=== PATIENT | female | born 1960 | race Caucasian/White ===

== ENCOUNTER 2018-03-26 15:47 | Emergency (ER) | payer SELFPAY ==
[2018-03-26 15:57] VITALS: BP 148/73
[2018-03-26] MEDS ORDERED: TETANUS/DIPHTHERIA/PERTUSSIS 0.5 ML SYRINGE IM ONE (16:09)
[2018-03-26] MEDS ORDERED: BACITRACIN OINT TOP STA (16:24)
--- NOTE | 2018-03-26 16:26 | ED Physician Documentation ---
PD HPI UPPER EXT INJURY - Stated complaint Stated Complaint: L ARM LAC - Chief complaint Chief Complaint: Laceration - History obtained from History obtained from: Patient - History of Present Illness Location: Left, Arm (forearm) Type of injury: Laceration Where injury occurred: Home Timing - onset: How many hours ago (3) Timing - duration: Hours (3) Timing - details: Abrupt onset Pain level max: 3 Pain level now: 3 Improved by: Nothing Worsened by: Other (nothing) Associated symptoms: No: Weakness, Numbness, Tingling, Swelling Contributing factors: No: Anticoagulated, Prior ortho surgery Similar symptoms before: Has not had sx before Recently seen: Not recently seen - Additonal information Additional information: cut L forearm on a metal box. Patient is right-handed. Tetanus up-to-date Review of Systems Neurologic: denies: Focal weakness, Numbness PD PAST MEDICAL HISTORY - Past Medical History Past Medical History: No - Past Surgical History Past Surgical History: No - Present Medications Home Medications: Ambulatory Orders Medication Instructions Recorded Confirmed Ibuprofen 400 mg PO BID 03/26/18 03/26/18 - Allergies Allergies/Adverse Reactions: Allergies Allergy/AdvReac Type Severity Reaction Status Date / Time Sulfa (Sulfonamide Allergy Unknown Unknown Verified 03/26/18 15:57 Antibiotics) - Social History Does the pt smoke?: No Smoking Status: Never smoker Does the pt drink ETOH?: Yes Does the pt have substance abuse?: No - Immunizations Immunizations are current?: Yes - POLST Patient has POLST: No PD ED PE NORMAL - Vitals Vital signs reviewed: Yes - General General: Alert and oriented X 3, No acute distress, Well developed/nourished - HEENT HEENT: PERRL - Neck Neck: Supple, no meningeal sign - Derm Derm: Warm and dry - Extremities Extremities: Other (L forearm - 4cm linear subcutaneous laceration. NVI. no tendon or muscle injury. ) - Neuro Neuro: Alert and oriented X 3 - Psych Psych: Normal mood, Normal affect Results - Vitals Vitals: Vital Signs - 24 hr 03/26/18 15:50 Temperature 36.8 C Heart Rate 68 Respiratory 16 Rate Blood Pressure 148/73 H O2 Saturation 100 Oxygen O2 Source Room air Procedures - Laceration (location) L forearm Length in cm: 4 Wound type: Linear, Into subcut fat, Clean Neurovascular status: Sensory intact, Motor intact, Vascular intact Tendon involvement: Tendon intact Wound Preparation: Irrigated copiously NS Skin layer closure: [place] Other: Patient tolerated well, No complications, Neurovascular intact, Dressing applied, Tetanus booster given (tdap) Complexity: Simple PD MEDICAL DECISION MAKING - ED course Complexity details: considered differential, d/w patient ED course: 58-year-old female with a left forearm laceration. Repaired. Tolerated well. Tdap given. Warnings of infection and instructions on wound care given at bedside. Also counseled on how to minimize scarring. Patient counseled regardin g signs and symptoms for which I believe and urgent re-evaluation would be necessary. Patient with good understanding of and agreement to plan and is comfortable going home at this time This document was made in part using voice recognition software. While efforts are made to proofread this document, sound alike and grammatical errors may occur. Departure - Departure Disposition: 01 Home, Self Care Clinical Impression: Laceration Condition: Good Instructions: ED Laceration Ext Sutr Stap Tape Follow-Up: your,doctor in 10-14 days for staple removal [Other] Comments: Keep the wound clean. Return if you worsen. The angela should be removed in 10-14 days either here or with your doctor. Return if you notice redness, swelling or drainage from the wound.
== END 2018-03-26 16:40 | disposition home or self-care (01) ==
LOC: ED 15:47
DX: S51.812A Laceration without foreign body of left forearm, initial encounter (principal); W45.8XXA Other foreign body or object entering through skin, initial encounter; W22.8XXA Striking against or struck by other objects, initial encounter; Y93.89 Activity, other specified; Y92.009 Unspecified place in unspecified non-institutional (private) residence as the place of occurrence of the external cause; Z23 Encounter for immunization
CPT/HCPCS: 12002; 90471; 90715; 99282; 99283; A9270

== ENCOUNTER 2018-04-08 08:24 | Emergency (ER) | payer SELFPAY ==
[2018-04-08 08:30] VITALS: BP 126/99
--- NOTE | 2018-04-08 09:03 | ED Physician Documentation ---
History of Present Illness - Stated complaint Stated Complaint: STAPLE REMOVAL - Chief complaint Chief Complaint: General - Additonal information Additional information: to ED for staple removal no concerns Review of Systems Skin: reports: Laceration (s) (healed) PD PAST MEDICAL HISTORY - Past Medical History Past Medical History: No - Past Surgical History Past Surgical History: Yes Ortho: Shoulder arthroplasty, Arthroscopic surgery - Present Medications Home Medications: Ambulatory Orders Medication Instructions Recorded Confirmed Ibuprofen 400 mg PO BID 03/26/18 03/26/18 Naproxen Sodium [Aleve] 04/08/18 - Allergies Allergies/Adverse Reactions: Allergies Allergy/AdvReac Type Severity Reaction Status Date / Time Sulfa (Sulfonamide Allergy Unknown Unknown Verified 04/08/18 08:30 Antibiotics) - Social History Does the pt smoke?: No Smoking Status: Never smoker Does the pt drink ETOH?: Yes Does the pt have substance abuse?: No - Immunizations Immunizations are current?: Yes - POLST Patient has POLST: No PD ED PE NORMAL - Vitals Vital signs reviewed: Yes - Derm Derm: Other (L ant forearm lac well healed) Results - Vitals Vitals: Vital Signs - 24 hr 04/08/18 08:25 Temperature 36.8 C Heart Rate 70 Respiratory 16 Rate Blood Pressure 126/99 H O2 Saturation 100 Oxygen O2 Source Room air PD MEDICAL DECISION MAKING - ED course ED course: 3 angela easily removed, 4th was twisted and needed hemostats to remove but removed successfully, very slight superfifcal dehisc to proximal aspect so applied steritrip, no infection Departure - Departure Disposition: 01 Home, Self Care Clinical Impression: Removal of staple Condition: Good Comments: The wound looks like it has healed well. Leave the steri strip on for extra support for about 5 days Return if worse in any way
== END 2018-04-08 09:17 | disposition home or self-care (01) ==
LOC: ED 08:24
DX: S51.812D Laceration without foreign body of left forearm, subsequent encounter (principal); X58.XXXD Exposure to other specified factors, subsequent encounter
CPT/HCPCS: 99281; 99282

== ENCOUNTER 2021-02-28 08:00 | Outpatient (CLI) | payer OTHER ==
--- NOTE | 2021-02-28 09:14 | XRAY Report ---
PROCEDURE: Chest 2 View X-Ray INDICATIONS: CHEST PAIN, LEFT TECHNIQUE: 2 view(s) of the chest. COMPARISON: None. FINDINGS: Surgical changes and devices: None. Lungs: Lungs are clear. Pleura: No pleural effusions or pneumothorax. Mediastinum: Mediastinal contours are normal. Heart size is normal. Bones and chest wall: No suspicious bony abnormalities. Soft tissues appear unremarkable. IMPRESSION: No acute disease. Reviewed by: Mor Montaño MD on 02/28/2021 9:13 AM [facility] Approved by: Mor Montaño MD on 02/28/2021 9:13 AM [facility] Station ID: [id number]
== END 2021-02-28 23:59 | disposition home or self-care (01) ==
LOC: DI.S 08:00
PROVIDERS: ATTEND Physician Assistant
DX: R07.89 Other chest pain (principal)

== ENCOUNTER 2021-09-23 16:49 | Emergency (ER) | payer OTHER ==
[2021-09-23 17:03] VITALS: BP 102/57
[2021-09-23] MEDS ORDERED: LIDOCAINE 1%-EPI 1:100000 20 ML MDV SUBQ STA (17:46)
--- NOTE | 2021-09-23 17:57 | ED Physician Documentation ---
PD HPI LOWER EXT INJURY - Stated complaint Stated Complaint: RAYA OPEN WOUND - Chief complaint Chief Complaint: Laceration - History obtained from History obtained from: Patient - Additional information Additional information: 61-year-old woman up-to-date on tetanus was breaking up a dog fight and Has a laceration on her left leg from a stick Review of Systems Constitutional: reports: Reviewed and negative Cardiac: reports: Reviewed and negative Respiratory: reports: Reviewed and negative PD PAST MEDICAL HISTORY - Past Surgical History Past Surgical History: Yes Ortho: Shoulder arthroplasty, Arthroscopic surgery - Present Medications Home Medications: Ambulatory Orders Medication Instructions Recorded Confirmed Ibuprofen 400 mg PO BID 03/26/18 03/26/18 Naproxen Sodium [Aleve] 04/08/18 - Allergies Allergies/Adverse Reactions: Allergies Allergy/AdvReac Type Severity Reaction Status Date / Time Sulfa (Sulfonamide Allergy Unknown Unknown Verified 09/23/21 17:03 Antibiotics) - Social History Does the pt smoke?: No Smoking Status: Never smoker Does the pt drink ETOH?: Yes Does the pt have substance abuse?: No - Immunizations Immunizations are current?: Yes - POLST Patient has POLST: No PD ED PE NORMAL - Vitals Vital signs reviewed: Yes - General General: Alert and oriented X 3, No acute distress - Extremities Extremities: Other (4 cm vertical laceration on the anteromedial mid left raya, no distal neurovascular compromise) - Neuro Neuro: Alert and oriented X 3, Normal speech Results - Vitals Vitals: Vital Signs - 24 hr 09/23/21 17:01 Temperature 37.2 C Heart Rate 79 Respiratory 16 Rate Blood Pressure 102/57 L O2 Saturation 97 Oxygen O2 Source Room air Procedures - Laceration (location) L leg Length in cm: 4 Wound type: Linear, Into subcut fat Neurovascular status: Sensory intact, Motor intact, Vascular intact Tendon involvement: Tendon intact Anesthesia: Lidocaine 1% Wound preparation: Irrigated copiously NS Skin layer closure: Nylon, Running, Size #-0 - enter number (3-0) Other: Tetanus UTD Departure - Departure Disposition: 01 Home, Self Care Clinical Impression: Laceration Condition: Good Record reviewed to determine appropriate education?: Yes Instructions: ED Laceration All Comments: Come back for any signs of infection which would include: Redness, swelling, drainage, increased pain, or fevers. You can wash it soap and water. Keep it covered and moist with bacitracin ointment which is available over the counter; avoid neosporin. Follow-up with your physician in About 3 weeks for suture removal.
== END 2021-09-23 18:13 | disposition home or self-care (01) ==
LOC: ED 16:49
DX: S81.812A Laceration without foreign body, left lower leg, initial encounter (principal); W45.8XXA Other foreign body or object entering through skin, initial encounter; Y93.K9 Activity, other involving animal care
CPT/HCPCS: 12002; 99281

== ENCOUNTER 2023-09-13 11:48 | Emergency (ER) | payer OTHER ==
--- NOTE | 2023-09-13 12:33 | ED Physician Documentation ---
History of Present Illness - Stated complaint Stated Complaint: GI - Chief complaint Chief Complaint: General - Additonal information Additional information: 63-year-old female presents emergency department for concerns for foreign body in her rectum. Patient had surgery on rectal polyp a couple years ago she is unable to remember who the surgeon was or where the surgery was completed since then she says overall it has been fine but she is always felt a little bit uncomfortable when she has bowel movements. Today when she was having a bowel movement she was having really hard time passing stool and said that she felt almost like there was something blocking her stool. She then went to the shower and self extracted with her fingers a foreign body she describes it as very small and metal she brings in to the emergency department in a plastic bag for further evaluation. She has no rectal bleeding at this point in time she does endorse and some rectal discomfort and pain no abdominal pain no recent fevers or chills no nausea or vomiting. PD PAST MEDICAL HISTORY - Past Medical History Past Medical History: No - Past Surgical History Past Surgical History: Yes Ortho: Shoulder arthroplasty, Arthroscopic surgery - Present Medications Home Medications: Ambulatory Orders Medication Instructions Recorded Confirmed No Known Home Medications 09/13/23 09/13/23 - Allergies Allergies/Adverse Reactions: Allergies Allergy/AdvReac Type Severity Reaction Status Date / Time No Known Drug Allergies Allergy Verified 09/13/23 11:58 - Social History Does the pt smoke?: No Smoking Status: Never smoker Does the pt drink ETOH?: Yes Does the pt have substance abuse?: No - Immunizations Immunizations are current?: Yes - POLST Patient has POLST: No PD ED PE NORMAL - Vitals Vital signs reviewed: Yes - General General: Alert and oriented X 3, No acute distress, Well developed/nourished - Abdomen Abdomen: Normal bowel sounds, Soft, Non tender, Non distended, No organomegaly PD ED PE EXPANDED - Rectal Rectal: Normal Tone, Ground Worker present (CHARISSE Kan present), Other (Very small foreign body palpated to the right portion of patient's rectum high up.). No: Mass, Hemorrhoid, Fissure Results - Vitals Vitals: Vital Signs - 24 hr 09/13/23 09/13/23 11:49 20:06 Temperature 36.2 C L Heart Rate 54 L 78 Respiratory 16 18 Rate Blood Pressure 120/50 L 132/88 H O2 Saturation 100 9 L Oxygen O2 Source Room air - Labs Labs: Laboratory Tests 09/13/23 09/13/23 12:56 12:56 WBC 3.5 L RBC 3.72 L Hgb 11.9 L Hct 36.4 L MCV 97.8 MCH 32.0 H MCHC 32.7 RDW 12.2 Plt Count 211 MPV 8.9 Neut # (Auto) 1.8 Lymph # (Auto) 1.5 Frio # (Auto) 0.3 Eos # (Auto) 0.0 Baso # (Auto) 0.0 Absolute Nucleated RBC 0.00 Nucleated RBC % 0.0 Sodium 139 Potassium 3.5 Chloride 104 Carbon Dioxide 29 Anion Gap 6.0 BUN 17 Creatinine 1.0 Estimated GFR (MDRD) 56 L Glucose 99 Calcium 9.5 Total Bilirubin 0.4 AST 25 ALT 16 Alkaline Phosphatase 53 Total Protein 6.8 Albumin 4.3 Globulin 2.5 Albumin/Globulin Ratio 1.7 Lipase 33 - Rads (name of study) CT abdomen pelvis with con Relevant Findings:: Final report received, EMP independent interpretation of test, Other (Abnormal hypervascular rectum no chantel findings of rectal perforation. 8 mm focus of bowel can be seen within the rectum small foreign body visualized in rectum.) PD Medical Decision Making - ED course ED course: 63-year-old female presents emergency department for concerns of possible foreign body to her rectum. She removed a small metal object that was about a centimeter in length that appeared to be metal and it did appear to be a postoperative or some sort of operative implantation. CT scan was complete and revealed no chantel findings of rectal perforation and normal hypervascular rectum 8 mm focus of bowel can be seen within the rectum and small foreign object to the rectum. I sent a picture to our on-call surgeon who said that she was unsure what this was but again she believes that this is most likely something that was placed by the GI surgeon a couple years ago. Given that her labs are fine and she is not having any acute symptoms she would greatly benefit from following up with her surgeon outpatient she has no free air in the abdomen no perforation she is told to continue to try to keep her bowel movements soft and consider adding things like MiraLAX to her regimen as well as senna and docusate. She is told ER return precautions. Departure - Departure Disposition: 01 Home, Self Care Clinical Impression: Rectal pain, Foreign body of rectum Instructions: ED Foreign Body Rectal Removed Adlt Comments: Please follow-up with the surgeon who did the surgery on your rectum if you start to develop any severe abdominal pain, fevers or chills, bright red per rectum or any other concerning emergent symptoms please come back to the emergency department. I think that your surgeon would be the most helpful to help you with navigating next steps and what to do. Below is the CT radiology read make sure that you attempt to have very soft bowel movements as we discussed I think MiraLAX can be quite helpful with having regular bowel movements it is not a fiber. EXAM: [id number] CT/ABPEW ([id number]) PROCEDURE: Abdomen/Pelvis W INDICATIONS: foreign body to rectum, possible post op complicat CONTRAST: 100ml omni 300 TECHNIQUE: After the administration of intravenous contrast, a CT scan of the abdomen and pelvis was performed. Images were recorded and evaluated at appropriate window settings. Reformats: coronal and sagittal. For radiation dose reduction, the following was used: automated exposure control, adjustment of mA and/or kV according to patient size. COMPARISON: None. FINDINGS: Image quality: Diagnostic. Lower chest: Unremarkable. Liver: No solid mass. Gallbladder: Within normal limits. Biliary tree: No intrahepatic or extrahepatic dilation, accounting for age. Spleen: No splenomegaly. Pancreas: No pancreatic ductal dilation. Adrenals: No adrenal nodule. Kidneys and ureters: No hydronephrosis. No renal cystic lesion which requires follow up. No solid mass. There is a simple left renal cyst seen anteriorly. Stomach, bowel and peritoneum: The heart and demonstrates generalized wall thickening and hypervascularity. There is a metallic foreign body seen involving the rectum on series 2 image 121 measuring 8 mm. No adjacent abscess can be seen. No free air is seen. The more proximal colon is within normal limits. No dilated loops of small bowel are seen. Lymph nodes: No central or retroperitoneal adenopathy. Vessels: No infrarenal aortic aneurysm. Patent portal vein. PELVIS Reproductive organs: The uterus demonstrates an unremarkable appearance for age. No adnexal masses are seen. Bladder: No abnormal wall thickening, accounting for underdistention. Pelvic lymph nodes: No pelvic adenopathy by size criteria. Bones: No aggressive osseous abnormality. There is a fixation device seen between the L4 and L5 spinous processes. There is mild grade 1 L4-L5 anterolisthesis, without associated pars defects. Other: No significant ventral or inguinal hernia. IMPRESSION: Abnormal, hypervascular rectum. No chantel findings of rectal perforation can be seen. 8mm focus of bowel can be seen within the rectum. Please correlate with postoperative change. Additional findings: Simple left renal cyst L4-L5 spinous process fusion device. Reviewed by: Santiago Hook MD on 09/13/2023 1:40 PM [facility] Approved by: Santiago Hook MD on 09/13/2023 1:40 PM [facility] Station ID: [id number] Report Electronically Signed by Santiago Hook MD 09/13/23 1437 09/13/23 1440 cc: DELFINA JAMA MD; Gonzalo Alcantar DNP . Forms: PCP List Discharge Date/Time: 09/13/23 15:34
[2023-09-13 13:02] LABS: BASOPHILS % (AUTO) 0.8 %; EOSINOPHILS % (AUTO) 0.8 %; HCT - HEMATOCRIT 36.4 % (37.0-47.0); HGB - HEMOGLOBIN 11.9 g/dL (12.0-16.0); LYMPHOCYTES # (AUTO) 1.5 10^3/uL (1.5-3.5); LYMPHOCYTES % (AUTO) 41.4 %; MEAN CORPUSCULAR HGB CONC 32.7 g/dL (32.0-36.0); MEAN CORPUSCULAR VOLUME 97.8 fL (81.0-99.0); MEAN PLATELET VOLUME 8.9 fL (7.9-10.8); MONOCYTES # (AUTO) 0.3 10^3/uL (0.0-1.0); MONOCYTES % (AUTO) 7.4 %; NEUTROPHILS # (AUTO) 1.8 10^3/uL (1.5-6.6); NEUTROPHILS % (AUTO) 49.6 %; PLT - PLATELET COUNT 211 10^3/uL (130-450); RED BLOOD COUNT 3.72 10^6/uL (4.20-5.40); RED CELL DISTRIBUTION WIDTH 12.2 % (12.0-15.0); WHITE BLOOD COUNT 3.5 x10^3/uL (4.8-10.8)
[2023-09-13 13:20] LABS: ALBUMIN 4.3 g/dL (3.2-5.5); ALBUMIN/GLOBULIN RATIO 1.7 (1.0-2.2); BILIRUBIN,TOTAL 0.4 mg/dL (0.2-1.0); CALCIUM 9.5 mg/dL (8.5-10.3); POTASSIUM 3.5 mmol/L (3.5-4.5); TOTAL PROTEIN 6.8 g/dL (6.4-8.9)
[2023-09-13] MEDS ORDERED: iohexoL-300 100 ML VIAL ONE (13:59)
--- NOTE | 2023-09-13 14:41 | CT Report ---
PROCEDURE: Abdomen/Pelvis W INDICATIONS: foreign body to rectum, possible post op complicat CONTRAST: 100ml omni 300 TECHNIQUE: After the administration of intravenous contrast, a CT scan of the abdomen and pelvis was performed. Images were recorded and evaluated at appropriate window settings. Reformats: coronal and sagittal. F or radiation dose reduction, the following was used: automated exposure control, adjustment of mA and /or kV according to patient size. COMPARISON: None. FINDINGS: Image quality: Diagnostic. Lower chest: Unremarkable. Liver: No solid mass. Gallbladder: Within normal limits. Biliary tree: No intrahepatic or extrahepatic dilation, accounting for age. Spleen: No splenomegaly. Pancreas: No pancreatic ductal dilation. Adrenals: No adrenal nodule. Kidneys and ureters: No hydronephrosis. No renal cystic lesion which requires follow up. No solid mas s. There is a simple left renal cyst seen anteriorly. Stomach, bowel and peritoneum: The heart and demonstrates generalized wall thickening and hypervascul arity. There is a metallic foreign body seen involving the rectum on series 2 image 121 measuring 8 m m. No adjacent abscess can be seen. No free air is seen. The more proximal colon is within normal limits. No dilated loops of small bowel are seen. Lymph nodes: No central or retroperitoneal adenopathy. Vessels: No infrarenal aortic aneurysm. Patent portal vein. PELVIS Reproductive organs: The uterus demonstrates an unremarkable appearance for age. No adnexal masses ar e seen. Bladder: No abnormal wall thickening, accounting for underdistention. Pelvic lymph nodes: No pelvic adenopathy by size criteria. Bones: No aggressive osseous abnormality. There is a fixation device seen between the L4 and L5 spino us processes. There is mild grade 1 L4-L5 anterolisthesis, without associated pars defects. Other: No significant ventral or inguinal hernia. IMPRESSION: Abnormal, hypervascular rectum. No chantel findings of rectal perforation can be seen. 8mm focus of bowel can be seen within the rectum. Please correlate with postoperative change. Additional findings: Simple left renal cyst L4-L5 spinous process fusion device. Reviewed by: Santiago Hook MD on 09/13/2023 1:40 PM [facility] Approved by: Santiago Hook MD on 09/13/2023 1:40 PM [facility] Station ID: [id number]
[2023-09-13] MEDS: iohexoL-300 100 ML VIAL IVP ONE (16:20)
[2023-09-13 20:09] VITALS: BP 132/88; O2SAT 9
== END 2023-09-13 15:34 | disposition home or self-care (01) ==
LOC: ED 11:48
DX: T18.5XXA Foreign body in anus and rectum, initial encounter (principal); T81.508A Unspecified complication of foreign body accidentally left in body following other procedure, initial encounter; W44.8XXA Other foreign body entering into or through a natural orifice, initial encounter; K62.89 Other specified diseases of anus and rectum
CPT/HCPCS: 36415; 74177; 80053; 83690; 85025; 99283; 99284; Q9967